=== PATIENT | female | born 1945 | race Caucasian/White ===

== ENCOUNTER 2017-01-31 14:50 | Inpatient (IN) | payer OTHER ==
[~2017-01-31] VITALS: Ht 160 cm; Wt 72.6 kg
[~2017-01-31 14:50] MED LIST: ATORVASTATIN CA80 MG PO; DULO60CA6 PO; ESZO3TAB28 PO; FURO20TA3 PO; GLIP5TAB10 PO; ITCH; LEVO75TA5 PO; LISI-338 PO; LISI10TA2 PO; LORA10TA3 PO; MECL12.5 PO; MELO7.5T29 PO; MEMA1CAP2 PO; METO-239 PO; METO10TA81 PO; OLOP5DRO EACHEYE; OMEP20CA9 PO; PIOG15TA42 PO; PYRI60TA PO; PYRI60TA2 PO
[2017-01-31 17:30] VITALS: BP 154/89
[2017-01-31] MEDS ORDERED: MELO7.5T29 PO (18:05)
[2017-01-31] MEDS ORDERED: CLOP75TA PO (18:05)
[2017-01-31] MEDS ORDERED: METO10TA81 PO (18:05)
--- NOTE | 2017-01-31 18:56 | RAD ---
AP portable chest radiograph 01/31/2017 Clinical History: Weakness and fatigue. History of coronary artery disease and hypertension.. An AP erect portable digital radiograph of the chest was obtained. Comparison study is dated 09/20/2015. Surgical changes are seen consistent with a CABG procedure. The cardiac silhouette is borderline enlarged. The thoracic aorta is minimally tortuous. Atherosclerotic calcification of the thoracic aorta is seen. No acute pulmonary infiltrate is seen. No pleural effusion or pneumothorax is noted. Degenerative changes are seen involving the thoracic and lumbar spine. Impression: No acute pulmonary infiltrate is seen. Electronically signed by: Adan Ma MD (01/31/2017 6:52 PM) [facility]
[2017-01-31 19:23] LABS: BASO # 0.1 x10^3/uL (0.0-0.2); BASO % 1 % (0-3); EOS # 0.1 x10^3/uL (0.0-0.7); EOS % 2 % (0-3); HEMATOCRIT 35.5 % (36.0-47.0); LYMPH # 3.1 x10^3/uL (1.0-4.8); LYMPH % 49 % (24-48); MEAN CORPUSCULAR HEMOGLOBIN 30 pg (25-35); MEAN CORPUSCULAR HGB CONC 34 g/dL (31-37); MEAN CORPUSCULAR VOLUME 90 fL (79-100); MONO # 0.7 x10^3/uL (0.0-1.1); MONO % 11 % (0-9); NEUT # 2.3 x10^3uL (1.8-7.7); NEUT % 37 % (31-73); PLATELET COUNT 206 x10^3/uL (140-400); RED BLOOD COUNT 3.94 x10^6/uL (3.50-5.40); RED CELL DISTRIBUTION WIDTH 12.7 % (11.5-14.5); WHITE BLOOD COUNT 6.2 x10^3/uL (4.0-11.0)
[2017-01-31 19:33] LABS: ALBUMIN 3.5 g/dL (3.4-5.0); CALCIUM 9.2 mg/dL (8.5-10.1); CREATININE 1.4 mg/dL (0.6-1.0); GFR 37.2; POTASSIUM 4.2 mmol/L (3.5-5.1); TOTAL BILIRUBIN 0.3 mg/dL (0.2-1.0); TOTAL PROTEIN 7.1 g/dL (6.4-8.2)
[2017-01-31 20:01] VITALS: BP 132/78
[2017-01-31 20:02] VITALS: BP 134/65
[2017-01-31 20:03] VITALS: BP 131/65
[2017-01-31] MEDS: IV NORMAL SALINE 1,000ML 1,000 ML IV SCH (20:54)
[2017-01-31] MEDS: LISINOPRIL 10 MG TABLET PO SCH (20:55)
[2017-01-31] MEDS: ATORVASTATIN CALCIUM 20 MG TABLET PO SCH (20:55)
[2017-01-31] MEDS: ENOXAPARIN 40 MG/0.4 ML DISP.SYRIN. SQ SCH (20:55)
[2017-01-31 22:59] LABS: BILIRUBIN,URINE NEG (NEG); CLARITY,URINE CLEAR; COLOR,URINE YELLOW; GLUCOSE,URINE NEG (NEG)
[2017-01-31 23:00] LABS: BACTERIA,URINE FEW /HPF (0-FEW); NITRITE,URINE NEG (NEG); RBC,URINE 0 /HPF (0-2); SQUAMOUS EPITHELIAL CELL,UR FEW /LPF; UROBILINOGEN,URINE 0.2 mg/dL (0.2 mg/dL); WBC,URINE OCC /HPF (0-4)
[2017-01-31 23:04] VITALS: BP 107/62
[2017-02-01] MEDS ORDERED: HYDR-2762 PO (02:30)
[2017-02-01 05:23] VITALS: BP 118/52
[2017-02-01] MEDS: LEVOTHYROXINE 75 MCG TABLET PO SCH (06:23)
[2017-02-01] MEDS: IV NORMAL SALINE 1,000ML 1,000 ML IV SCH ×3 (06:30→22:26)
[2017-02-01] MEDS ORDERED: CONTRAST GIVEN MC PRN (07:00)
[2017-02-01] MEDS ORDERED: IOHEXOL 240 MG/ML 50ML VIAL. PO ONE (07:00)
[2017-02-01] MEDS ORDERED: PNEUMOC CONJ VACC 23-VALENT 0.5 ML VIAL. VAX IM ONE (09:00)
[2017-02-01] MEDS: METOPROLOL SUCC 24HR ER 25 MG TAB.ER.24H. PO SCH (09:00)
[2017-02-01] MEDS: CLOPIDOGREL BISULFATE 75 MG TABLET PO SCH (09:15)
[2017-02-01] MEDS: glipiZIDE 5 MG TABLET PO SCH (09:15)
[2017-02-01] MEDS: FUROSEMIDE 20 MG TABLET PO SCH (09:15)
[2017-02-01] MEDS: DULoxetine HCL 60 MG CAPSULE.DR PO SCH (09:15)
[2017-02-01] MEDS: PANTOPRAZOLE 40 MG TABLET. PO SCH (09:16)
[2017-02-01] MEDS: METOCLOPRAMIDE 10 MG TABLET PO SCH ×3 (09:16→16:35)
[2017-02-01] MEDS: MELOXICAM 7.5 MG TABLET PO SCH (09:16)
[2017-02-01 10:00] LABS: CREATININE 1.2 mg/dL (0.6-1.0); GFR 44.4; POTASSIUM 4.3 mmol/L (3.5-5.1)
[2017-02-01 10:03] LABS: BASO # 0.1 x10^3/uL (0.0-0.2); BASO % 1 % (0-3); EOS # 0.1 x10^3/uL (0.0-0.7); EOS % 3 % (0-3); HEMATOCRIT 33.9 % (36.0-47.0); HEMOGLOBIN 11.3 g/dL (12.0-15.5); LYMPH % 47 % (24-48); MEAN CORPUSCULAR HEMOGLOBIN 30 pg (25-35); MEAN CORPUSCULAR HGB CONC 33 g/dL (31-37); MEAN CORPUSCULAR VOLUME 91 fL (79-100); MONO # 0.4 x10^3/uL (0.0-1.1); MONO % 10 % (0-9); NEUT # 1.7 x10^3uL (1.8-7.7); NEUT % 39 % (31-73); PLATELET COUNT 181 x10^3/uL (140-400); RED BLOOD COUNT 3.75 x10^6/uL (3.50-5.40); RED CELL DISTRIBUTION WIDTH 13.1 % (11.5-14.5); WHITE BLOOD COUNT 4.3 x10^3/uL (4.0-11.0)
[2017-02-01 11:05] VITALS: BP 147/74
[2017-02-01] MEDS: HYDROcodone/APAP 7.5/325MG 1 TAB TABLET PO PRN ×2 (11:25→17:13)
--- NOTE | 2017-02-01 12:30 | RAD ---
EXAM: CT abdomen/pelvis without contrast. HISTORY: Lymphoma, weight loss. TECHNIQUE: Computed tomography of the abdomen and pelvis was performed without intravenous contrast. COMPARISON: 08/22/2007. FINDINGS: Lung windows through the visualized portions of the bases reveal changes of coronary artery bypass grafting. Interstitial opacities in the bases may indicate mild pulmonary edema or interstitial lung disease. Bone windows reveal no suspicious lesions. The gallbladder is surgically absent. There are calcified granulomas in the liver and spleen. The pancreas, adrenal glands and kidneys are unremarkable. There are postsurgical changes in the right groin. There are moderate to severe atherosclerotic calcifications diffusely. There are no pathologically enlarged lymph nodes. The appendix is above the limits of normal caliber 9 mm. However, it does not appear inflamed and this may be a variant of normal. There is no obstruction. The uterus is surgically absent. Sigmoid diverticulosis is moderate. IMPRESSION: 1. No pathologically enlarged lymph nodes. 2. The appendix is above the limits of normal caliber but does not appear inflamed and this is likely a variant of normal. Correlate with other clinical data to further exclude early appendicitis. 3. Correlate for mild pulmonary edema versus interstitial lung disease. *One or more of the following individualized dose reduction techniques were utilized for this examination: 1. Automated exposure control. 2. Adjustment of the mA and/or kV according to patient size. 3. Use of iterative reconstruction technique.
[2017-02-01 14:58] VITALS: BP 107/76
[2017-02-01] MEDS: ENOXAPARIN 40 MG/0.4 ML DISP.SYRIN. SQ SCH (17:14)
[2017-02-01 19:00] VITALS: BP 137/61
[2017-02-01] MEDS: LISINOPRIL 10 MG TABLET PO SCH (19:58)
[2017-02-01] MEDS: ATORVASTATIN CALCIUM 20 MG TABLET PO SCH (19:58)
[2017-02-01 23:00] VITALS: BP 132/57
--- NOTE | 2017-02-02 00:18 | PN ---
DATE: SUBJECTIVE: A 71-year-old female in with history of lymphoma, generalized weakness, and failure to thrive, not eating very well. The patient otherwise is resting fairly comfortably. A CAT scan done this morning on her abdomen and pelvis and will get those results here ____ later today. OBJECTIVE: VITAL SIGNS: Blood pressure 120/60, respiratory rate 18, pulse 70, afebrile, good oxygen saturation. GENERAL: The patient is alert and oriented, still swelling to the right submandibular area. LUNGS: Diminished, but clear. CARDIOVASCULAR: Regular sinus rhythm. ABDOMEN: Protuberant, soft, slight tenderness, but no rebound or guarding. Positive bowel sounds. No hepatosplenomegaly. EXTREMITIES: No clubbing, cyanosis, or edema. NEUROLOGIC: Baseline for this patient. LABORATORY DATA: Blood sugars are being monitored. IMPRESSION: Acute lymphoma, failure to thrive, dehydration, generalized weakness. PLAN: Continue to monitor the patient ____ make further evaluation on her as indicated. LUIS MIKE MD DR: DONAVON/eryn JOB#: [id number] / [id number]
[2017-02-02] MEDS: LEVOTHYROXINE 75 MCG TABLET PO SCH (05:17)
[2017-02-02] MEDS: HYDROcodone/APAP 7.5/325MG 1 TAB TABLET PO PRN (05:17)
[2017-02-02 05:45] VITALS: BP 125/55
[2017-02-02] MEDS: glipiZIDE 5 MG TABLET PO SCH (08:30)
[2017-02-02] MEDS: PANTOPRAZOLE 40 MG TABLET. PO SCH (08:30)
[2017-02-02] MEDS: CLOPIDOGREL BISULFATE 75 MG TABLET PO SCH (08:30)
[2017-02-02] MEDS: DULoxetine HCL 60 MG CAPSULE.DR PO SCH (08:30)
[2017-02-02] MEDS: FUROSEMIDE 20 MG TABLET PO SCH (08:30)
[2017-02-02] MEDS: METOCLOPRAMIDE 10 MG TABLET PO SCH ×2 (08:30→11:17)
[2017-02-02] MEDS: MELOXICAM 7.5 MG TABLET PO SCH (08:30)
[2017-02-02] MEDS: METOPROLOL SUCC 24HR ER 25 MG TAB.ER.24H. PO SCH (08:31)
[2017-02-02] MEDS ORDERED: FUROSEMIDE 20 MG/2 ML VIAL IVP SCH (09:00)
[2017-02-02 10:46] VITALS: BP 165/78
[2017-02-02] MEDS: IV NORMAL SALINE 1,000ML 1,000 ML IV SCH (11:16)
[2017-02-02] MEDS ORDERED: LEVO100T5 PO (13:48)
[2017-02-02] MEDS ORDERED: LISI-334 PO (13:48)
[2017-02-02] MEDS ORDERED: FURO40TA4 PO (13:48)
--- NOTE | 2017-02-02 17:08 | EKG ---
[address] [address] Test Date: 2017-02-02 Test Time: 17:24:29 Pat Name: CAMRON BEARD Department: Room: 121 A Gender: Mystery Shopper: : 1945 Requested By: LUIS MIKE Order Number: [id number] Reading MD: Willy Markham MD Measurements Intervals [place] Rate: P: VT: QRS: QRSD: T: QT: QTc: Interpretive Statements SR Electronically Signed On 02-06-2017 10:50:38 [employer]UMENT TECHNICIAN by Willy Markham MD
--- NOTE | 2017-02-03 01:03 | PN ---
DATE: 02/02/2017 SUBJECTIVE: The patient says she is still pretty weak and tired. The patient may have a little touch of heart failure. PHYSICAL EXAMINATION: VITAL SIGNS: Blood pressure is 130/60, respiratory rate 18, pulse 74, afebrile. GENERAL: The patient otherwise alert and oriented. LUNGS: Diminished crackles noted in the bases. Rales. CARDIOVASCULAR: Regular sinus rhythm. ABDOMEN: Soft, nontender. EXTREMITIES: No clubbing, cyanosis or edema. NEUROLOGIC: Baseline for her, still has swelling in her right jaw. IMPRESSION: Acute on top of chronic diastolic heart failure. PLAN: We will go ahead and get echo, diurese her, make further evaluation on her as indicated. LUIS MIKE MD DR: DONAVON/eryn JOB#: [id number] / [id number]
== END 2017-02-02 17:30 | disposition home health service (06) | DRG 840 ==
LOC: 1 SOUTH 14:50
PROVIDERS: ADMIT Family Medicine; ATTEND Family Medicine
DX: C85.90 Non-Hodgkin lymphoma, unspecified, unspecified site (principal); I50.33 Acute on chronic diastolic (congestive) heart failure; E86.0 Dehydration; E11.9 Type 2 diabetes mellitus without complications; I50.32 Chronic diastolic (congestive) heart failure; I11.0 Hypertensive heart disease with heart failure; R62.7 Adult failure to thrive; K21.9 Gastro-esophageal reflux disease without esophagitis; R63.4 Abnormal weight loss; M54.5 Low back pain; G89.29 Other chronic pain; I25.10 Atherosclerotic heart disease of native coronary artery without angina pectoris; E03.9 Hypothyroidism, unspecified; F32.9 Major depressive disorder, single episode, unspecified; F41.9 Anxiety disorder, unspecified; Z95.1 Presence of aortocoronary bypass graft; Z79.4 Long term (current) use of insulin; Z86.73 Personal history of transient ischemic attack (TIA), and cerebral infarction without residual deficits; Z82.49 Family history of ischemic heart disease and other diseases of the circulatory system; Z87.891 Personal history of nicotine dependence; Z68.28 Body mass index [BMI] 28.0-28.9, adult
CPT/HCPCS: 36415; 71010; 74176; 80048; 80053; 81001; 82947; 83880; 84443; 85025; 85379; 87086; 90732; 93005; J1650; J8597; 97110; 97116; J7030

== ENCOUNTER 2017-06-16 21:30 | Emergency (ER) | payer MEDICARE, OTHER ==
[~2017-06-16] VITALS: Ht 160 cm; Wt 72.6 kg
[~2017-06-16 21:30] MED LIST changes: +CLOP75TA PO; +FURO40TA4 PO; +HYDR-2762 PO; +LEVO100T5 PO; +LISI-334 PO
--- NOTE | 2017-06-16 21:42 | PHYS DOC ---
Past History Past Medical History: Diabetes, Heart Disease, Hypertension, Stroke Past Surgical History: Coronary Bypass Surgery, Hysterectomy, Tonsillectomy Smoking: Non-smoker Alcohol Use: None Drug Use: None Adult General Chief Complaint Chief Complaint: ABDOMINAL PAIN HPI HPI Patient is a 71-year-old female presenting to the emergency department for evaluation of multiple complaints. Patient says that she is here because of pain and swelling in her right submandibular area. She says that she had a port placed at [facility] approximately one week ago but she does not know from what she does not know if she has cancer or why it was placed. History had to be obtained over the phone from daughter and she says that she sent the patient to the emergency department as patient has been complaining of diffuse abdominal pain with decreased by mouth intake and decreased energy and intermittent dizziness. Patient denied the symptoms to me however on exam she did have some nonspecific diffuse abdominal tenderness. Reading the discharge summary and admission note from January of last year and appears that she had right submandibular lymphadenopathy and was diagnosed with lymphoma although this was not definitive. She does not know if she is receiving chemotherapy. She is in no obvious distress with normal vital signs. Review of Systems Review of Systems Constitutional: Denies fever or chills [] Eyes: Denies change in visual acuity, redness, or eye pain [] HENT: Denies nasal congestion or sore throat [] Respiratory: Denies cough or shortness of breath [] Cardiovascular: No additional information not addressed in HPI [] GI: Denies abdominal pain, nausea, vomiting, bloody stools or diarrhea [] : Denies dysuria or hematuria [] Musculoskeletal: Denies back pain or joint pain [] Integument: Denies rash or skin lesions [] Neurologic: Denies headache, focal weakness or sensory changes [] All other systems were reviewed and found to be within normal limits, except as documented in this note. Allergies Allergies Allergies Coded Allergies Type Severity Reaction Last Updated Verified No Known Drug Allergies 04/08/13 No Physical Exam Physical Exam Constitutional: Well developed, well nourished, no acute distress, non-toxic appearance. [] HENT: Normocephalic, atraumatic, bilateral external ears normal, oropharynx moist, no oral exudates, nose normal. [] Eyes: PERRLA, EOMI, conjunctiva normal, no discharge. [] Neck: Normal range of motion, right submandibular lymphadenopathy with some erythema to the skin and tenderness to palpation although it seems to be more of a mass and induration. Cardiovascular:Heart rate regular rhythm, no murmur [] Lungs & Thorax: Bilateral breath sounds clear to auscultation [] Abdomen: Bowel sounds normal, soft, diffuse nonfocal tenderness, no rebound or guarding, no masses, no pulsatile masses. [] Skin: Warm, dry, no erythema, no rash. [] Back: No tenderness, no CVA tenderness. [] Extremities: No tenderness, no cyanosis, no clubbing, ROM intact, no edema. [] Neurologic: Alert and oriented X 2, normal motor function, normal sensory function, no focal deficits noted. [] EKG EKG [] Radiology/Procedures Radiology/Procedures CT neck with contrast History: Right neck submandibular swelling and pain Axial helical images of the neck were obtained after the administration of 60 mL of Omni 300 contrast. Axial coronal and sagittal reconstruction was performed for a CT soft tissues neck with contrast. Findings: There is a soft tissue enhancing mass inferior to the right mandible that measures 4.1 x 4.0 cm. The salivary glands appear normal. The fat soft tissue planes of the neck are preserved. There is no prevertebral soft tissue swelling. The thyroid appears normal. Impression: Mass lymph node complex in the right neck. This could be squamous cell carcinoma or lymphoma. PQRS Compliance Statement: One or more of the following individualized dose reduction techniques were utilized for this examination: 1. Automated exposure control 2. Adjustment of the mA and/or kV according to patient size 3. Use of iterative reconstruction technique Electronically signed by: Suyapa Kiran III, MD (06/17/2017 12:32 AM) [facility] DICTATED AND SIGNED BY: SUYAPA KIRAN III, MD DATE: 06/17/[address] SCAN OF THE ABDOMEN AND PELVIS WITH IV CONTRAST. History: Abdominal pain Comparison:February 01, 2017. Procedure: Contiguous axial images of the abdomen and pelvis were performed after the administration of 60 cc of Omni 300 IV contrast and without oral contrast. CT Abdomen with contrast: Findings: Liver: Unremarkable Spleen: Unremarkable Pancreas: Unremarkable Adrenal Glands: Unremarkable Kidneys: Unremarkable There is no mass or lymphadenopathy. There is no free air. There is no free fluid. There is diffuse calcification the hurt of the aorta and great vessels without aneurysm. Impression: No acute findings. End Impression CT Pelvis with Contrast: Findings: The urinary bladder appears normal. There is no free fluid. There is no lymphadenopathy. Impression: No acute findings. RS Compliance Statement: One or more of the following individualized dose reduction techniques were utilized for this examination: 1. Automated exposure control 2. Adjustment of the mA and/or kV according to patient size 3. Use of iterative reconstruction technique Electronically signed by: Suyapa Kiran III, MD (06/17/2017 1:56 AM) [facility] DICTATED AND SIGNED BY: SUYAPA KIRAN III, MD DATE: 06/17/17 0150 Course & Med Decision Making Course & Med Decision Making Patient with lymphoma and there does not appear to be any abscess on her CT. CT abdomen and pelvis did not show any acute findings. I spoke with Dr. Pham and he felt that there is no admission diagnosis given her vital signs and labs are completely normal and she is at her baseline based off my assessment and he says that he knows her quite well and nothing has changed. Given there is some erythema over the lymphadenopathy I will place her on a 5 day course of Augmentin to cover any possible skin infection. I told her to follow with Dr. Pham within 3-4 days for reassessment and come back to the ED sooner with worsening pain fevers vomiting or other general concerns. All findings were discussed with daughter and she was discharged in stable condition. Dragon Disclaimer Dragon Disclaimer This electronic medical record was generated, in whole or in part, using a voice recognition dictation system. Departure Departure: Impression: Primary Impression: Lymphoma Additional Impressions: Lymphadenitis Cellulitis Disposition: 01 HOME, SELF-CARE Condition: STABLE Referrals: LUIS MIKE MD (PCP) Patient Instructions: Non-Hodgkin's Lymphoma, Adult Additional Instructions: TAKE 400MG OF IBUPROFEN EVERY 6 HOURS FOR PAIN/SWELLING. FOLLOW WITH YOUR PCP SOON YOU CAN. THANK YOU! Scripts Amoxicillin/Potassium Clav (AUGMENTIN 875-125 TABLET) 1 Each Tablet 1 TAB PO BID, #10 TAB Prov: ZULY GUEVARA DO 06/17/17 Problem Qualifiers Primary Impression: Lymphoma Lymphoma type: unspecified type Lymphoma site: neck Qualified Codes: C85.91 - Non-Hodgkin lymphoma, unspecified, lymph nodes of head, face, and neck ZULY GUEVARA DO Jun 16, 2017 21:42
[2017-06-16] MEDS ORDERED: IOHEXOL 300 MG/ML 75 ML VIAL. IV ONE (22:30)
[2017-06-16] MEDS ORDERED: ONDANSETRON PF 4 MG/2 ML VIAL. IV ONE (22:30)
[2017-06-16 22:33] LABS: BASO # 0.1 x10^3/uL (0.0-0.2); BASO % 1 % (0-3); EOS % 1 % (0-3); HEMATOCRIT 33.6 % (36.0-47.0); HEMOGLOBIN 11.3 g/dL (12.0-15.5); LYMPH % 12 % (24-48); MEAN CORPUSCULAR HEMOGLOBIN 30 pg (25-35); MEAN CORPUSCULAR HGB CONC 34 g/dL (31-37); MEAN CORPUSCULAR VOLUME 89 fL (79-100); MONO # 0.5 x10^3/uL (0.0-1.1); MONO % 6 % (0-9); NEUT # 6.8 x10^3uL (1.8-7.7); NEUT % 81 % (31-73); PLATELET COUNT 257 x10^3/uL (140-400); RED BLOOD COUNT 3.79 x10^6/uL (3.50-5.40); RED CELL DISTRIBUTION WIDTH 13.4 % (11.5-14.5); WHITE BLOOD COUNT 8.4 x10^3/uL (4.0-11.0)
[2017-06-16 22:40] LABS: CALCIUM 10.1 mg/dL (8.5-10.1); CREATININE 1.2 mg/dL (0.6-1.0); GFR 44.4; MAGNESIUM 1.8 mg/dL (1.8-2.4); POTASSIUM 4.6 mmol/L (3.5-5.1)
[2017-06-16] MEDS ORDERED: DEXAMETHASONE SOD PHOS 4 MG/ML VIAL IV ONE (23:30)
[2017-06-16] MEDS ORDERED: PIPERACILLIN/TAZOBACTAM 3.375 GM in IV NORMAL SALINE 50ML 50 ML IV ONE (23:30)
--- NOTE | 2017-06-17 00:35 | RAD ---
CT neck with contrast History: Right neck submandibular swelling and pain Axial helical images of the neck were obtained after the administration of 60 mL of Omni 300 contrast. Axial coronal and sagittal reconstruction was performed for a CT soft tissues neck with contrast. Findings: There is a soft tissue enhancing mass inferior to the right mandible that measures 4.1 x 4.0 cm. The salivary glands appear normal. The fat soft tissue planes of the neck are preserved. There is no prevertebral soft tissue swelling. The thyroid appears normal. Impression: Mass lymph node complex in the right neck. This could be squamous cell carcinoma or lymphoma. PQRS Compliance Statement: One or more of the following individualized dose reduction techniques were utilized for this examination: 1. Automated exposure control 2. Adjustment of the mA and/or kV according to patient size 3. Use of iterative reconstruction technique Electronically signed by: Joey Rasmussen III, MD (06/17/2017 12:32 AM) [facility]
--- NOTE | 2017-06-17 01:59 | RAD ---
CT SCAN OF THE ABDOMEN AND PELVIS WITH IV CONTRAST. History: Abdominal pain Comparison:February 01, 2017. Procedure: Contiguous axial images of the abdomen and pelvis were performed after the administration of 60 cc of Omni 300 IV contrast and without oral contrast. CT Abdomen with contrast: Findings: Liver: Unremarkable Spleen: Unremarkable Pancreas: Unremarkable Adrenal Glands: Unremarkable Kidneys: Unremarkable There is no mass or lymphadenopathy. There is no free air. There is no free fluid. There is diffuse calcification the hurt of the aorta and great vessels without aneurysm. Impression: No acute findings. End Impression CT Pelvis with Contrast: Findings: The urinary bladder appears normal. There is no free fluid. There is no lymphadenopathy. Impression: No acute findings. PQRS Compliance Statement: One or more of the following individualized dose reduction techniques were utilized for this examination: 1. Automated exposure control 2. Adjustment of the mA and/or kV according to patient size 3. Use of iterative reconstruction technique Electronically signed by: Joey Rasmussen III, MD (06/17/2017 1:56 AM) [facility]
[2017-06-17] MEDS ORDERED: AMOX1TAB61 PO (02:10)
[2017-06-17] MEDS ORDERED: IV NORMAL SALINE 50ML 50 ML ONE (02:15)
[2017-06-17] MEDS ORDERED: PIPERACILLIN/TAZOBACTAM 3.375 GM VIAL IV ONE (02:15)
[2017-06-17 02:50] VITALS: BP 173/66
== END 2017-06-17 03:10 | disposition home or self-care (01) ==
LOC: ER 21:30
DX: C85.91 Non-Hodgkin lymphoma, unspecified, lymph nodes of head, face, and neck (principal); I88.9 Nonspecific lymphadenitis, unspecified; L03.221 Cellulitis of neck; E11.9 Type 2 diabetes mellitus without complications; I11.9 Hypertensive heart disease without heart failure; Z86.73 Personal history of transient ischemic attack (TIA), and cerebral infarction without residual deficits; Z95.1 Presence of aortocoronary bypass graft
CPT/HCPCS: 36415; 70491; 74177; 80048; 83735; 85025; 85610; 85730; 96365; 96375; 99285; J1100; J2405; J2543; J3010; Q9967